=== PATIENT | male | born 1945 | race Two or more races ===

== ENCOUNTER 2019-03-21 19:03 | Outpatient (CLI) | payer OTHER | END 2019-03-21 20:00 | disposition home or self-care (01) | LOC: LAB 19:03 | DX: R97.20 Elevated prostate specific antigen [PSA] (principal) ==

== ENCOUNTER 2024-08-27 18:57 | Emergency (ER) | payer OTHER ==
[~2024-08-27] VITALS: Ht 177.8 cm; Wt 74.8 kg
[2024-08-27] MEDS ORDERED: DICLOFENAC POTA50 MG PO (22:24)
== END 2024-08-28 00:03 | disposition home or self-care (01) ==
LOC: ER 19:00
DX: M79.604 Pain in right leg (principal)